=== PATIENT | female | born 1960 | race Caucasian/White ===

== ENCOUNTER 2018-10-17 13:43 | Emergency (ER) | payer MEDICARE ==
[~2018-10-17] VITALS: Wt 55.6 kg
[2018-10-17] MEDS ORDERED: PROPRANOLOL HCL60 M3 PO (13:54)
[2018-10-17] MEDS ORDERED: LEVOXYL50 MCG PO (13:54)
[2018-10-17] MEDS ORDERED: PEPCID 20MG TAB20 MG PO (13:54)
[2018-10-17] MEDS ORDERED: COZAAR 50MG50 MG/TAB PO (13:54)
[2018-10-17] MEDS ORDERED: TOPIRAMATE50 MG PO (13:55)
[2018-10-17] MEDS ORDERED: BACLOFEN20 MG PO (13:55)
[2018-10-17] MEDS ORDERED: NEURONTIN600 M1 PO (13:55)
[2018-10-17] MEDS ORDERED: VITAMIN B122500 MC2 PO (13:56)
[2018-10-17] MEDS ORDERED: OSTERA TABLET1 EACH PO (13:56)
[2018-10-17] MEDS ORDERED: KLONOPIN 1MG1 MG PO (13:56)
[2018-10-17] MEDS ORDERED: LIBRAX CAPSULE1 EACH PO (13:56)
[2018-10-17] MEDS ORDERED: IMITREX 25MG TA25 MG PO (13:56)
[2018-10-17] MEDS ORDERED: AMITRIPTYLINE H50 M1 PO (13:57)
[2018-10-17] MEDS ORDERED: TEMAZEPAM30 M1 PO (13:57)
[2018-10-17] MEDS ORDERED: LEXAPRO 10MG10 MG PO (13:57)
[2018-10-17] MEDS ORDERED: VOLTAREN SR25 MG/TAB PO (13:58)
[2018-10-17] MEDS ORDERED: FENOFIBRATE160 MG PO (13:58)
[2018-10-17] MEDS ORDERED: DDAVP 0.0110 MCG/0.1 NS (13:59)
[2018-10-17] MEDS ORDERED: MELOXICAM15 MG PO (13:59)
[2018-10-17] MEDS ORDERED: DICLOFENAC SOD100 GM TP (14:11)
[2018-10-17 14:35] LABS: EOS # 0.1 (0.04-0.40); EOS % 3.1 % (1.0-5.0); HEMATOCRIT 37.1 % (37.0-47.0); HEMOGLOBIN 12.3 g/dL (12.5-16.0); MEAN CELL VOLUME 89 fl (78-100); MEAN CORPUSCULAR HEMOGLOBIN 29 pg (27-31); MEAN CORPUSCULAR HGB CONC 33 g/dL (33-37); MEAN PLATELET VOLUME 9.8 fl (7.4-10.4); MONO # 0.4 (0.20-0.80); NEU # 1.3 (1.40-6.50); PLATELET COUNT 224 K/mm3 (130-400); RED BLOOD COUNT 4.18 M/mm3 (4.10-5.30); RED CELL DISTRIBUTION WIDTH 12.5 % (11.5-14.5); WHITE BLOOD COUNT 3.8 K/mm3 (4.8-10.8)
[2018-10-17 14:52] LABS: PARTIAL THROMBOPLASTIN TIME 23.7 SECONDS (21.0-32.0); PROTHROMBIN TIME 10.3 SECONDS (9.0-12.0)
[2018-10-17] MEDS ORDERED: NORCO 325 MG-51 TA1 PO (16:38)
[2018-10-17 17:24] VITALS: BP 141/89
== END 2018-10-17 17:13 | disposition home or self-care (01) ==
LOC: ED 13:43
PROVIDERS: Family Medicine
DX: S42.292A Other displaced fracture of upper end of left humerus, initial encounter for closed fracture (principal); S80.01XA Contusion of right knee, initial encounter; M54.2 Cervicalgia; I10 Essential (primary) hypertension; M79.7 Fibromyalgia; G50.0 Trigeminal neuralgia; Z86.011 Personal history of benign neoplasm of the brain; W10.1XXA Fall (on)(from) sidewalk curb, initial encounter
CPT/HCPCS: J1885